=== PATIENT | female | born 2000 | race Caucasian/White ===

== ENCOUNTER 2018-10-28 11:15 | Outpatient (CLI) | payer OTHER ==
[~2018-10-28] VITALS: Ht 170.2 cm; Wt 99.1 kg
[~2018-10-28 11:15] MED LIST: IBUP-1542 PO; PNV11TAB PO
[2018-10-28 12:10] VITALS: Ht 170.2 cm; Wt 99.1 kg
[2018-10-28 12:11] VITALS: BP 129/79; PULSE 91; RESP 18
== END 2018-10-28 14:05 | disposition home or self-care (01) ==
LOC: OBT 11:15 → L-D 11:15 → OBT 14:05
PROVIDERS: ATTEND Obstetrics & Gynecology
DX: O13.3 Gestational [pregnancy-induced] hypertension without significant proteinuria, third trimester (principal); Z3A.36 36 weeks gestation of pregnancy
CPT/HCPCS: 76815; 76818; 80053; 81001; 84560; 85025; 85384; 85610; 85730; Z7500; G0463

== ENCOUNTER 2018-10-30 10:56 | Outpatient (CLI) | payer OTHER ==
[~2018-10-30] VITALS: Ht 170.2 cm; Wt 99.4 kg
[2018-10-30 11:08] VITALS: BP 123/74; PULSE 98; RESP 18; Ht 170.2 cm; Wt 99.4 kg
== END 2018-10-30 17:18 | disposition home or self-care (01) ==
LOC: L-D 10:56 → OBT 10:56
PROVIDERS: ATTEND Obstetrics & Gynecology
DX: O62.9 Abnormality of forces of labor, unspecified (principal); Z3A.36 36 weeks gestation of pregnancy
CPT/HCPCS: 76818; 80053; 80307; 81001; 81003; 82565; 82570; 82575; 83615; 84112; 84156; 84560; 85025; Z7500; G0463

== ENCOUNTER 2018-10-31 13:11 | Outpatient (CLI) | payer OTHER ==
[~2018-10-31] VITALS: Ht 170.2 cm; Wt 99.4 kg
[2018-10-31 13:29] VITALS: Ht 170.2 cm; Wt 99.4 kg
[2018-10-31 13:30] VITALS: BP 123/75; PULSE 91; RESP 18
== END 2018-10-31 15:07 | disposition home or self-care (01) ==
LOC: OBT 13:11 → L-D 13:12 → OBT 15:07
PROVIDERS: ATTEND Obstetrics & Gynecology
DX: O13.3 Gestational [pregnancy-induced] hypertension without significant proteinuria, third trimester (principal); Z3A.36 36 weeks gestation of pregnancy
CPT/HCPCS: 76818; G0463

== ENCOUNTER 2018-11-01 10:00 | Inpatient (IN) | payer OTHER ==
[~2018-11-01] VITALS: Ht 170.2 cm; Wt 99.9 kg
[2018-11-01] MEDS ORDERED: LACTATED RINGER'S 1,000 ML IV PRN (10:14)
[2018-11-01 10:19] VITALS: BP 140/80; PULSE 92; RESP 18; Ht 170.2 cm; Wt 99.9 kg
[2018-11-01] MEDS ORDERED: BUTORPHANOL 2 MG INJ IV PRN (10:30)
[2018-11-01] MEDS ORDERED: AMPICILLIN 2 GM/NS (PMX) 100 ML IV ONE (10:30)
[2018-11-01] MEDS ORDERED: MINERAL OIL LIGHT 10 ML VIAL TOP ONE (10:30)
[2018-11-01] MEDS ORDERED: IBUPROFEN 600 MG TAB PO PRN (10:30)
[2018-11-01] MEDS ORDERED: METHYLERGONOVINE 0.2 MG INJ IM PRN (10:30)
[2018-11-01] MEDS ORDERED: LIDOCAINE 1% (MPF) 30 ML INJ INJ PRN (10:30)
[2018-11-01] MEDS ORDERED: OXYTOCIN 30 UNITS/LR 500 ML IV SCH ×2 (10:30)
[2018-11-01] MEDS ORDERED: OXYTOCIN 30 UNITS/LR 500 ML IV PRN (10:30)
[2018-11-01] MEDS ORDERED: MISOPROSTOL 200 MCG TAB PR PRN (10:30)
[2018-11-01] MEDS ORDERED: CARBOPROST 250 MCG INJ IM PRN (10:30)
[2018-11-01] MEDS: LACTATED RINGER'S 1,000 ML IV SCH ×2 (10:39→19:32)
[2018-11-01] MEDS: MISOPROSTOL 50 MCG CAPSULE PO SCH ×4 (10:56→23:14)
[2018-11-01] MEDS: AMPICILLIN 1 GM/NS (PMX) 50 ML IV SCH ×3 (15:08→23:14)
[2018-11-02] MEDS: AMPICILLIN 1 GM/NS (PMX) 50 ML IV SCH ×6 (03:16→23:58)
[2018-11-02] MEDS: LACTATED RINGER'S 1,000 ML IV SCH ×3 (04:29→22:21)
[2018-11-02] MEDS: MISOPROSTOL 50 MCG CAPSULE PO SCH ×2 (04:30→08:34)
[2018-11-02] MEDS: OXYTOCIN 30 UNITS/LR 500 ML IV SCH (17:07)
[2018-11-03] MEDS ORDERED: FENTAnyl 2MCG/ML-ROPIV 0.2% 100 ML ONE (00:29)
[2018-11-03] MEDS ORDERED: NALOXONE (0.4 MG/ML) INJ IV PRN (01:00)
[2018-11-03] MEDS: LACTATED RINGER'S 1,000 ML IV SCH ×2 (04:17→14:11)
[2018-11-03] MEDS: AMPICILLIN 1 GM/NS (PMX) 50 ML IV SCH ×4 (04:17→16:30)
[2018-11-03] MEDS: FENTAnyl 2MCG/ML-ROPIV 0.2% 100 ML BAG EPI SCH ×2 (08:41→16:31)
[2018-11-03] MEDS ORDERED: ONDANSETRON 4 MG INJ ONE (08:50)
[2018-11-03] MEDS ORDERED: ONDANSETRON 4 MG INJ IV PRN (09:00)
[2018-11-03] MEDS: OXYTOCIN 30 UNITS/LR 500 ML IV SCH (10:09)
[2018-11-03] MEDS ORDERED: KETOROLAC 30 MG INJ IV STA (18:15)
[2018-11-03] MEDS ORDERED: ACETAMINOPHEN 500 MG TAB PO STA (18:15)
[2018-11-03 20:00] VITALS: BP 123/68; PULSE 72; RESP 19
[2018-11-03] MEDS ORDERED: ZOLPIDEM 5 MG TAB PO PRN (20:30)
[2018-11-03] MEDS ORDERED: WITCH HAZEL/GLYCERIN PAD PR PRN (20:30)
[2018-11-03] MEDS ORDERED: METHYLERGONOVINE 0.2 MG INJ IM PRN (20:30)
[2018-11-03] MEDS ORDERED: BENZOCAINE 20% 56 ML SPRAY TOP PRN (20:30)
[2018-11-03] MEDS ORDERED: OXYTOCIN 30 UNITS/LR 500 ML IV PRN (20:30)
[2018-11-03] MEDS ORDERED: MISOPROSTOL 200 MCG TAB PR PRN (20:30)
[2018-11-03] MEDS ORDERED: CARBOPROST 250 MCG INJ IM PRN (20:30)
[2018-11-03] MEDS ORDERED: HYDROCODONE/APAP (5/325) TAB PO PRN ×2 (20:30)
[2018-11-03] MEDS ORDERED: DIBUCAINE 1% 30 GM OINT TOP PRN (20:30)
[2018-11-03 21:00] VITALS: BP 129/74; PULSE 79; RESP 19
[2018-11-03] MEDS: MAGNESIUM HYDROXIDE 30ML CUP PO SCH (21:50)
[2018-11-03] MEDS: SENNA/DOCUSATE NA (8.6MG/50MG) TAB PO SCH (21:50)
[2018-11-03] MEDS: LACTATED RINGER'S 1,000 ML IV* SCH (22:57)
[2018-11-03] MEDS: CEPHALEXIN 500 MG CAP PO SCH (23:56)
[2018-11-03] MEDS: LANOLIN HPA 1 PKT TOP PRN (23:56)
[2018-11-03] MEDS: IBUPROFEN 600 MG TAB PO SCH (23:56)
[2018-11-04] VITALS: BP 121/73; PULSE 81; RESP 19
[2018-11-04 04:10] VITALS: BP 124/71; PULSE 73; RESP 18
[2018-11-04] MEDS: LACTATED RINGER'S 1,000 ML IV* SCH (04:11)
[2018-11-04] MEDS: CEPHALEXIN 500 MG CAP PO SCH ×4 (05:50→23:36)
[2018-11-04] MEDS: IBUPROFEN 600 MG TAB PO SCH ×4 (05:50→23:36)
[2018-11-04 09:06] VITALS: BP 118/73; PULSE 74; RESP 17
[2018-11-04] MEDS: SENNA/DOCUSATE NA (8.6MG/50MG) TAB PO SCH ×2 (10:02→21:00)
[2018-11-04] MEDS: MAGNESIUM HYDROXIDE 30ML CUP PO SCH ×2 (10:02→21:00)
[2018-11-04 11:50] VITALS: BP 126/74; PULSE 76; RESP 18
[2018-11-04] MEDS: LANOLIN HPA 1 PKT TOP PRN (13:11)
[2018-11-04 16:15] VITALS: BP 124/80; PULSE 91; RESP 18
[2018-11-04 19:40] VITALS: BP 122/68; PULSE 78; RESP 19
[2018-11-05 03:40] VITALS: BP 116/68; PULSE 65; RESP 18
[2018-11-05] MEDS: CEPHALEXIN 500 MG CAP PO SCH ×3 (05:35→17:48)
[2018-11-05] MEDS: IBUPROFEN 600 MG TAB PO SCH ×3 (05:35→17:48)
[2018-11-05 08:15] VITALS: BP 116/61; PULSE 71; RESP 18
[2018-11-05] MEDS: MAGNESIUM HYDROXIDE 30ML CUP PO SCH (08:34)
[2018-11-05] MEDS: SENNA/DOCUSATE NA (8.6MG/50MG) TAB PO SCH (08:34)
[2018-11-05] MEDS ORDERED: DIPHTH/TET/ACEL PERTUSS (ADULT) 0.5 ML VIAL IM* ONE (09:00)
[2018-11-05] MEDS ORDERED: MEASLES,MUMPS,RUBELLA VACCINE INJ SC* ONE (09:00)
[2018-11-05] MEDS ORDERED: VARICELLA VACCINE LIVE/PF 1,350 UNIT/0.5 ML ML SC* ONE (09:00)
[2018-11-05 16:28] VITALS: BP 120/64; PULSE 67; RESP 18
== END 2018-11-05 18:00 | disposition home or self-care (01) | DRG 807 ==
LOC: L-D 10:07 → MS1 11-03 19:52
PROVIDERS: ADMIT Obstetrics & Gynecology; ATTEND Obstetrics & Gynecology
PROC: 10E0XZZ Delivery of Products of Conception, External Approach (ICD-10-PCS; principal; 2018-11-03)
PROC: 0UQGXZZ Repair Vagina, External Approach (ICD-10-PCS; 2018-11-03)
PROC: 0UQKXZZ Repair Hymen, External Approach (ICD-10-PCS; 2018-11-03)
PROC: 3E033VJ Introduction of Other Hormone into Peripheral Vein, Percutaneous Approach (ICD-10-PCS; 2018-11-03)
DX: O14.04 Mild to moderate pre-eclampsia, complicating childbirth (principal); Z37.0 Single live birth; O70.0 First degree perineal laceration during delivery; Z3A.37 37 weeks gestation of pregnancy
CPT/HCPCS: 62322; 80053; 84560; 85025; 85384; 85610; 85730; 86592; 86850; 86900; 86901; 87340; 90715; 90716; J0290; J2405; J2590; J3010; J7120